=== PATIENT | female | born 1945 | race Caucasian/White ===

== ENCOUNTER → 2025-03-30 10:18 | Outpatient (REF) | payer MEDICARE, OTHER, SELFPAY | LOC: RAD 10:18 | PROVIDERS: ATTENDING PHYSICIAN Internal Medicine | DX: R06.02 Shortness of breath (principal) | CPT/HCPCS: 71046 ==

== ENCOUNTER → 2025-04-05 09:30 | Outpatient (REF) | payer MEDICARE, OTHER, SELFPAY | LOC: HWRCS 09:30 | PROVIDERS: ATTENDING PHYSICIAN Internal Medicine | DX: R06.02 Shortness of breath (principal) | CPT/HCPCS: 93306 ==

== ENCOUNTER → 2025-04-07 09:46 | Outpatient (REF) | payer MEDICARE, OTHER, SELFPAY | LOC: RCS 09:46 | PROVIDERS: ATTENDING PHYSICIAN Internal Medicine | DX: R06.02 Shortness of breath (principal) | CPT/HCPCS: 93017; 93350 ==

== ENCOUNTER → 2025-04-09 06:57 | Outpatient (REF) | payer MEDICARE, OTHER, SELFPAY | LOC: RAD 06:57 | PROVIDERS: ATTENDING PHYSICIAN Internal Medicine | DX: R93.89 Abnormal findings on diagnostic imaging of other specified body structures (principal) | CPT/HCPCS: 71260; Q9967 ==

== ENCOUNTER 2025-04-18 08:14 | Emergency (ER) | payer MEDICARE, OTHER, SELFPAY ==
[2025-04-18 08:16] VITALS: BP 161/96
[2025-04-18 09:30] LABS: Hematocrit 29.9 % (37.0-47.0); Hemoglobin 10.2 g/dL (12.0-16.0); Mean Corp Hgb Conc. 34.1 g/dL (33.0-37.0); Mean Corpuscular Volume 84.5 fL (81.0-99.0); Nucleated Red Blood Cells % 0 %; Platelet Count 367 10^3/uL (130-400); Red Cell Dist. Width 12.7 % (11.5-14.5)
[2025-04-18 09:36] VITALS: BP 133/92
[2025-04-18] MEDS: MORPHINE SULFATE 2 MG IV (09:41)
[2025-04-18] MEDS: TORADOL 15 MG IV (09:42)
[2025-04-18 09:44] LABS: Urine Character Clear (Clear)
[2025-04-18 09:46] LABS: ALT (SGPT) 24 U/L (0-35); AST (SGOT) 22 U/L (14-36); Albumin 4.0 g/dl (3.5-5.0); Alkaline Phosphatase 112 U/L (38-126); Blood Urea Nitrogen 29 mg/dl (7-17); Calcium 9.9 mg/dl (8.4-10.2); Carbon Dioxide 26 mmol/L (22-30); Chloride 103 mmol/L (98-107); Glucose 90 mg/dl (70-99); Potassium 3.5 mmol/L (3.5-5.1); Sodium 139 mmol/L (135-145); Total Protein 6.2 g/dl (6.3-8.2); eGFR > 60.00
--- NOTE | 2025-04-18 09:55 | ED.GENMED ---
History of Present Illness
General
Chief Complaint: Urinary Symptoms
Source: patient
Exam Limitations: none
Time Seen by Provider: 04/18/25 08:35
Nursing documentation reviewed up to this point in time: agreed with
History of Present Illness
History of Present Illness:
See MDM
Past History
Past History
ED Past Medical History: Negative Asthma
ED Past Surgical History: Negative Cardiac
Social History
Tobacco: Non-smoker
Alcohol: None
Drug: None
Personal:
Living: with family
Employment: Retired
Family History
Family History: Negative Early CAD
Phy Exam
Physical Exam
Physical Exam:
See MDM
Course
Orders/Labs/Results
Orders:
Orders
04/18/25 09:06
Straight cath- Treatment ONCE
Ketorolac [Toradol] 15 mg IV NOW STA
Morphine Sulfate 2 mg IV NOW STA
04/18/25 09:08
CT Pe/abd/pel W Urgent
Reason For Exam: pleuritic pain, r/o pe,
04/18/25 09:23
Complete Blood Count/With Diff Urgent
Comprehensive Metabolic Panel Urgent
04/18/25 09:37
Urinalysis Reflex To Culture Urgent
Date Specimen was Collected: 04/18/25
Time Specimen was Collected: 09:23
Urine Microscopic Reflex Cult Urgent
04/18/25 10:24
HYDROmorphone [Dilaudid] 0.5 mg IV NOW STA
04/18/25 11:55
Fosfomycin [Monurol] 3 gm PO ONCE ONE
Abnormal Lab Results
04/18/25 04/18/25
09:23 09:37
RBC 3.54 L 10^6/uL
(4.20-5.40)
Hgb 10.2 L g/dL
(12.0-16.0)
Hct 29.9 L %
(37.0-47.0)
Abs Immat Gran (auto) 0.1 H 10^3/uL
(0-0.05)
Absolute Monos (auto) 1.2 H 10^3/uL
(0.1-0.6)
Immature Gran % 1.2 H %
(0-0.5)
Monocytes % 12.1 H %
(1.7-9.3)
BUN 29 H mg/dl
(7-17)
Total Protein 6.2 L g/dl
(6.3-8.2)
Ur Occult Blood Reflex 3+ A
(Negative)
Urine RBC 3-6 A /HPF
(0-2)
Urine Bacteria (Reflex) Few A
(Negative)
Urine Albumin (Reflex) 2+ A
(Neg - Trace)
04/18/25 09:23
04/18/25 09:23
Vital Signs
Initial and Last Documented VS:
Initial Vital Signs
Temp Pulse Resp BP Pulse Ox
36.7 C 107 16 161/96 98
04/18/25 08:16 04/18/25 08:16 04/18/25 08:16 04/18/25 08:16 04/18/25 08:16
Last Documented Vital Signs
Temp Pulse Resp BP Pulse Ox
36.7 C 98 22 126/92 97
04/18/25 08:16 04/18/25 12:23 04/18/25 12:23 04/18/25 12:23 04/18/25 11:45
MDM/Problems Addressed
Differential Diagnosis Includes:
see MDM
MDM/Problems Addressed:
Note:
CHIEF COMPLAINT(S)
Increasing back pain and urinary issues.
HISTORY OF PRESENT ILLNESS
The patient is a 79-year-old female who presented with a chief complaint of worsening back pain over the past week and a half, accompanied by urinary concerns. She reports the onset of severe lower back pain described as 'knives' without any prior
injury such as falls or lifting. The pain has since progressed to the kidney area, wrapping around to the abdomen with pressure-like sensations. Movement exacerbates the pain significantly, making it difficult for the patient to move. She finds hot
showers provide temporary relief. The patient has not previously experienced this type of back pain.
Three to four days ago, the patient started noticing changes in her urine, including a yellow color with white sediment, although it was not cloudy. She denies symptoms typically associated with urinary tract infections that she has experienced in
the past. Despite this, she is taking Epadel twice weekly to prevent urinary tract infections.
The patient also mentioned a history of potential long COVID issues with associated breathing challenges that began after working in her garden. She has been undergoing various tests, including cardiac evaluation, due to these respiratory symptoms.
There has been reported weight loss of 12 pounds recently, from 138 pounds to 126 pounds.
PAST MEDICAL AND SURGICAL HISTORY
The patient is currently undergoing testing for long COVID. Previous cardiac tests were noted to detect an unidentified spot on her rib.
CHRONIC MEDICAL CONDITIONS SIGNIFICANTLY AFFECTING CARE
The patient is being treated for hypercholesterolemia and hypertension, although specific medication details were not provided.
PHYSICAL EXAM
- Nursing notes reviewed and vital signs reviewed.
-
GENERAL: Alert , in no apparent distress, comfortable at rest anxious
HEAD: NCAT
NECK: no midline tenderness, active ROM intact, no paraspinal muscle tenderness;
CARDIAC: Mild tachycardia 100 m, no edema
LUNGS: Clear breath sounds bilaterally, no acute respiratory distress, no wheezes/rales/rhonchi breathing quite well
ABDOMEN: Soft, without focal tenderness, no r/g, no cvat, normal bowel sounds, nondistended
NEUROLOGICAL: Alert and oriented, no focal neuro deficits, CN intact, 5/5 strength, sensation intact,
SKIN: Warm and dry, no rashes
MUSCULOSKELETAL: No edema, well perfused. Hips normal
Back: No midline tenderness, mild dextroscoliosis, slight left paraspinal muscle tenderness on exam, no swelling
negative straight leg raise Bilaterally no CVA tenderness
Patient has a lot of pain with any movement, leaning forward, changing position
Normal sensation
PSYCH: Normal and appropriate interaction.
PLAN
1. Initiate pain management, considering strong pain medication options such as Toradol (Ketorolac) and additional pain medication trials.
2. Perform a urine catheterization for a clean sample due to difficulty in ambulation.
3. Order relevant blood work and review prior imaging to assess for potential musculoskeletal or urinary obstructions.
4. Consider the necessity for further imaging, including the possibility of a bone scan, though the patient expressed concerns over tolerability.
5. Address the patients respiratory issues related to suspected long COVID from previous testing.
DIFFERENTIAL DIAGNOSIS
The Differential Diagnosis includes, in no particular order and is not limited to:
1. Musculoskeletal back pain
2. Long COVID syndrome
3. Urinary tract infection
4. Kidney stones
5. Osteoporosis-related fractures
6. Degenerative disc disease
7. Pathologic rib lesion
8. Non-specific urinary sediment
9. Nephrolithiasis
10. Chronic obstructive pulmonary disease (COPD) exacerbation
CARE-UPDATE
04/18/25 - 11:54
The patient reports that they have been administered dilaudid for pain, which was more effective than previous medications. A CT scan revealed numerous spots on the ribs, with the largest being 3 centimeters on the anterior left third rib. A
compression fracture at T6 and degenerative changes at L2 were noted, suggesting the pain may not be rib-related. Concern was raised about possible bone metastasis or multiple myeloma, given the rib lesions. Blood tests showed some microscopic
hematuria, but no clear infection signs; a dose of Monural was given as a precaution. Patient showed concern over weight loss and lack of appetite. Recommendations include contacting a hard hat diver/oncologist for further workup, possibly including a
bone marrow biopsy, after referrals by the primary care physician. Pain management will include opioid analgesics like oxycodone for at-home use, alongside stool softeners to prevent constipation. A pending bone scan scheduled for April should
not be canceled as it is part of the work-up. The shortness of breath may relate to underlying conditions detected on imaging. Emphasis was placed on the urgency of further evaluation to rule out or confirm malignancy. The patient was advised to
pursue referrals promptly and consider additional tests if necessary for back pain evaluation, possibly involving an MRI if symptoms persist or worsen. Acknowledgement of concerns related to potential cancer was addressed with reassurance and
encouragement for stepwise evaluation and management.
Patient was able to ambulate without assistance. Pain is controlled. Her primary is aware about this. DC home with oxycodone as needed
*Pulse Oximetry
SaO2: 99
Oxygen Mode of Delivery: Room air
Patient hypoxic: no
*Critical Care Note
Total Time (30-74mins, 75-104mins- exclusive of procedures): Not Applicable
ED Attending Note
-
Portions of this chart may have been created with voice recognition software.� Occasional wrong word or��sound alike� substitutions may have occurred due to the inherent limitations of voice recognition software.
Discharge Plan
Departure
Patient Disposition: Home (Routine Discharge)
Date of Disposition: 04/18/25
Time of Disposition: 12:09
Patient with high blood pressure during this ER visit?: No
Condition: Fair
Covid-19: Not Applicable
Discharge Problem:
lytic lesions rib, Compression fracture of lumbosacral spine, Back pain
Instructions: Low back pain (DC)
Prescriptions:
New
oxycodone 5 mg tablet
5 mg PO Q8H PRN (Reason: Pain) Qty: 14 0RF
No Action
benzonatate 100 MG capsule
100 mg PO TIDPRN PRN (Reason: cough) Qty: 14 0RF
codeine-guaifenesin [Guaiatussin AC] 200 MG/20 MG liquid
5 - 10 ml PO .Q4-6HPRN PRN (Reason: COUGH) Qty: 6 0RF
Referrals:
Dioni Pastrana, [Active, Hematology / Oncology] - Follow up in 5-7 days
Joanna Bernal MD [Family Provider, Internal Medicine]
Activity Restrictions/Additional Instructions:
I spoke with your doctor about your CAT scan report. She is going to give you a call tomorrow. In the meantime you can continue the prednisone taper
Take Tylenol twice a day 2 extra strength for pain. As needed for more severe pain you can do oxycodone 5 mg every 6-8 hours. Oxycodone is a narcotic and can make you constipated. Please take a stool softener while taking this.
Call the hematology oncology office for follow-up.
Return to the emergency department for inability to walk, severe pain, fevers or chills, urinary incontinence, or any concerns. We gave you dose of antibiotics just in case you have a very slight bladder infection
Interventions
Interventions:
*Risk Screen - Suicide Last Done: 04/18/25 08:16
*General Assessment Last Done: 04/18/25 08:54
*Neglect/Abuse Screening Last Done: 04/18/25 08:16
*ED- Fall Risk Assessment Last Done: 04/18/25 08:54
*ED COVID-19 Vaccine History Last Done: 04/18/25 08:54
*ED Influenza Vaccine History Last Done: 04/18/25 08:54
*Nursing Disposition Last Done: 04/18/25 12:31
ED-Female Genitourinary Assessment Last Done: 04/18/25 08:54
Discharge Date and Time
Discharge Date/Time: 04/18/25 12:32
Print Language: TAMAZIGHT
[2025-04-18] MEDS: DILAUDID 0.5 MG IV (10:32)
[2025-04-18 11:00] VITALS: BP 125/85
[2025-04-18] MEDS: MONUROL 3 GM PO (11:59)
[2025-04-18 12:23] VITALS: BP 126/92
== END 2025-04-18 12:32 | disposition home or self-care (01) ==
LOC: EMR 08:14
PROVIDERS: Physician Assistant; EMERGENCY PHYSICIAN Emergency Medicine; FAMILY PHYSICIAN Internal Medicine
DX: M48.54XA Collapsed vertebra, not elsewhere classified, thoracic region, initial encounter for fracture (principal); M48.57XA Collapsed vertebra, not elsewhere classified, lumbosacral region, initial encounter for fracture; E78.00 Pure hypercholesterolemia, unspecified; I10 Essential (primary) hypertension
CPT/HCPCS: 99284; 96374; 96375 ×2; 71275; 74177; 80053; 81003; 81015; 85025; Q9967

== ENCOUNTER 2025-04-25 12:39 | Inpatient (IN) | payer MEDICARE, OTHER, SELFPAY ==
[2025-04-25] VITALS (26 sets, daily range): BP systolic 83–120; BP diastolic 52–89; BMI 20.8; BMI 20.5
--- NOTE | 2025-04-25 08:52 | EDRN ---
Solitario GODDARD in room w/ pt.
--- NOTE | 2025-04-25 09:00 | ED.GENMED ---
History of Present Illness
General
Chief Complaint: Change in Mental Status
Time Seen by Provider: 04/25/25 08:45
History of Present Illness
History of Present Illness:
79-year-old female with recent diagnosis of multiple myeloma presents to the emergency department for evaluation of a period of disorientation that occurred this morning. According to her she seemed 'loopy and disoriented' when she woke up
but symptoms have since improved. They saw oncology 2 days ago for establishment of care with new diagnosis of multiple myeloma and due to pain related to multiple compression fractures in the thoracic and lumbar spine, the patient was prescribed
oxycodone. Family notes that the dosage has gradually increased from 5 mg to most recently 10 mg. Last dose of oxycodone was before sleep last night. Patient denies any complaints other than oral discomfort and dry mouth at this time, she is
currently being treated for oral thrush
Past History
Past History
ED Past Medical History: Negative Asthma
ED Past Surgical History: Negative Cardiac
Social History
Tobacco: Non-smoker
Alcohol: None
Drug: None
Personal:
Living: with family
Employment: Retired
Family History
Family History: Negative Early CAD
Review of Systems
Review of Systems
Allergies reviewed?: Yes
All Other Systems: ROS reviewed and negative except as documented in HPI and ROS
Phy Exam
Physical Exam
Physical Exam:
GEN: Well appearing, NAD, WDWN
HEENT: Oral mucosa dry, no scleral icterus
Cardiac: Regular rate and rhythm
Lung: No respiratory distress, no tachypnea
MSK: No gross deformity or injuries
Skin: Good color, no pallor or jaundice, no rashes
Neuro: AO x3, moves all extremities freely, CN II-XII grossly intact
Psych: Calm, cooperative
Course
Orders/Labs/Results
Orders:
Orders
04/25/25 09:00
Urinalysis Reflex To Culture Urgent
04/25/25 09:01
Electrocardiogram (*1) Urgent
Reason for Study: QTc Monitoring
EKG- Treatment ONCE
04/25/25 09:21
Case Management Consult ONCE
Case Management Consult: [facility]/Home Care
04/25/25 09:23
Complete Blood Count/No Diff Urgent
Comprehensive Metabolic Panel Urgent
04/25/25 09:42
0.9% Sodium Chloride 1000 ml [Nss] 1,000 ml IV BOLUS
04/25/25 10:22
Lactated Ringers [Lr] 1,000 ml IV BOLUS
04/25/25 12:31
Admit/Transfer Patient As Directed
Co-Sign Provider:
Level of Care: Inpatient admission
Assign to:: Telemetry
Physician / Group: narciso
Diagnosis: hypovolemia
Reason for Telemetry: Arrhythmia
Date to Stop Telemetry: 04/28/25
Time to Stop Telemetry: 11:00
Reason for Hospitalization: hypovolemia
Expected length of stay greater than two midnights?: Yes
ELOS- Estimated Length of Stay in days: 2
I certify the patient meets the requirements for IP care: Yes
PRN Pain Medication Management As Directed
May give lesser potent ordered pain med per pt: Yes
preference::
Protocol:: Medication orders for pain may be administered in a
manner that supports deferring to patient preference
when the pt is:
- Requesting an ordered lesser potent pain medication.
Least to most potent pain medications are defined
as: acetaminophen < NSAID < tramadol < opioids
(morphine, oxycodone, hydromorphone).
- Requesting a lesser dose of the same medication IF
ORDERED.
- Requesting a less intrusive route of administration
if both routes are prescribed by the provider (PO <
IV).
04/25/25 12:32
Code Status As Directed
Resuscitation Status: Full Code
04/28/25 11:00
DC Protocol for Telemetry ONCE
Abnormal Lab Results
04/25/25
09:23
WBC 12.4 H 10^3/uL
(4.8-10.8)
RBC 3.26 L 10^6/uL
(4.20-5.40)
Hgb 9.3 L g/dL
(12.0-16.0)
Hct 28.0 L %
(37.0-47.0)
Sodium 131 L mmol/L
(135-145)
BUN 51 H mg/dl
(7-17)
Creatinine 1.5 H mg/dL
(0.6-1.0)
Total Protein 5.5 L g/dl
(6.3-8.2)
Albumin 3.2 L g/dl
(3.5-5.0)
04/25/25 09:23
04/25/25 09:23
Vital Signs
Initial and Last Documented VS:
Initial Vital Signs
Temp Pulse Resp BP Pulse Ox
98.1 F 119 18 101/67 93
04/25/25 08:34 04/25/25 08:34 04/25/25 08:34 04/25/25 08:34 04/25/25 08:34
Last Documented Vital Signs
Temp Pulse Resp BP Pulse Ox
98.1 F 103 16 114/69 93
04/25/25 08:34 04/25/25 12:30 04/25/25 12:30 04/25/25 12:30 04/25/25 12:30
MDM/Problems Addressed
MDM/Problems Addressed:
I suspect the patient's transient confusion this morning is likely a product of her increasing oxycodone usage particularly given late night dosing, however cannot rule out associated metabolic encephalopathy in the setting of dehydration. While
her hemodynamics did improve, her soft blood pressures in conjunction with persistent tachycardia are concerning for severe dehydration which is likely worsened by her lack of p.o. intake due to active thrush. Will admit her for further IV fluids
and monitoring
*Pulse Oximetry
SaO2: 93
Oxygen Mode of Delivery: Room air
Patient hypoxic: no
*Critical Care Note
Total Time (30-74mins, 75-104mins- exclusive of procedures): Not Applicable
Update Note
Update Note:
Patient's daughter indicated to staff that she would like to seek case management consultation as she worries that her father is unable to care for the patient at this time
ED Attending Note
-
Portions of this chart may have been created with voice recognition software.� Occasional wrong word or��sound alike� substitutions may have occurred due to the inherent limitations of voice recognition software.
Discharge Plan
Departure
Patient Disposition: Admit
Date of Disposition: 04/25/25
Time of Disposition: 12:12
Admit to: Med/Surg
Presentation/result/management discussed w/ accepting MD/DO: Hospitalist
Discharge Problem:
Acute dehydration
Interventions
Interventions:
*Risk Screen - Suicide Last Done: 04/25/25 09:45
*General Assessment Last Done: 04/25/25 08:42
*Neglect/Abuse Screening Last Done: 04/25/25 09:45
*ED- Fall Risk Assessment Last Done: 04/25/25 09:45
*ED COVID-19 Vaccine History Last Done: 04/25/25 09:45
*ED Influenza Vaccine History Last Done: 04/25/25 09:45
ED- Pulmonary Assessment Last Done: 04/25/25 09:45
ED- Neurological Assessment Last Done: 04/25/25 09:45
ED- Cardiac Assessment Last Done: 04/25/25 09:45
ED Swallowing Screen Last Done: 04/25/25 09:40
[2025-04-25 09:33] LABS: Hematocrit 28.0 % (37.0-47.0); Hemoglobin 9.3 g/dL (12.0-16.0); Mean Corp Hgb Conc. 33.2 g/dL (33.0-37.0); Mean Corpuscular Volume 85.9 fL (81.0-99.0); Platelet Count 295 10^3/uL (130-400); Red Cell Dist. Width 13.2 % (11.5-14.5)
[2025-04-25] MEDS: NSS 1000 IV ×2 (09:47→14:28)
[2025-04-25 10:09] LABS: ALT (SGPT) 16 U/L (0-35); AST (SGOT) 14 U/L (14-36); Albumin 3.2 g/dl (3.5-5.0); Alkaline Phosphatase 102 U/L (38-126); Blood Urea Nitrogen 51 mg/dl (7-17); Calcium 9.5 mg/dl (8.4-10.2); Carbon Dioxide 29 mmol/L (22-30); Chloride 99 mmol/L (98-107); Estimated Creatinine Clearance 27 ml/min; Glucose 93 mg/dl (70-99); Potassium 4.6 mmol/L (3.5-5.1); Sodium 131 mmol/L (135-145); Total Protein 5.5 g/dl (6.3-8.2); eGFR 35.67
--- NOTE | 2025-04-25 11:35 | EDCM ---
Addendum entered by Marcela Cifuentes 04/25/25 11:54:
[facility] referral placed in [facility].
Original Note:
Consult received, chart reviewed, met with pt, her and 3 daughters bedside in ED. Pt lives with in 2 story home, has been sleeping in chair on first floor, full flight to second floor bedroom and full bath.
Needs assistance with ADLs and personal care, assists and daughters provide support but all work. Pt was ambulating with RW but has increasing weakness.
is primary caregiver, looking for assistance with getting her up in the morning and getting her to bed at night.
Discussed what services [facility] could provide, he is interested but does not feel that would provide enough help. is agreeable to [facility] referral.
I gave them a list of private pay caregiver agencies, instructed them they need to reach out to schedule services.
They also asked about SNF placement, reviewed need for 3 overnight stays for Medicare to cover otherwise would be private pay.
Pt saw Dr Orellana at [facility] last week, I also encouraged [facility] to [facility] to [facility] to see if could provide any additional resources.
Confirms prescription coverage.
PCP: Joanna Bernal
Pharmacy: [facility] on [address]
[2025-04-25] MEDS: LR 1000 IV (11:37)
--- NOTE | 2025-04-25 12:23 | EDRN ---
Dr. Valderrama in room w / pt and family at this time.
--- NOTE | 2025-04-25 12:35 | HPS.HSE ---
Family Physician
-
Family Physician: Joanna Bernal
Chief Complaint
-
confusion,
History of Present Illness
79-year-old female past medical history of hypertension, hypercholesteremia, thoracic spine lesions, rib lesion, suspected multiple myeloma, presenting for loopiness, disorientation and agitation this morning.
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 She was referred to see Dr. Brumfield of oncology who suspected she had multiple myeloma. She has yet to schedule bone marrow
biopsy.
She was recently treated with Medrol Dosepak for back pain related to osseous metastatic disease of the spine. She was prescribed oxycodone which was recently increased to 10 mg last week.
She recently had upper respiratory infection with coughing of phlegm, and was treated with Z-Mark.
After being treated with steroid and Z-Mark she developed oral thrush and was prescribed what sounds like clotrimazole lozenges which she started 2 days ago for 7-day course. She denies any swallowing difficulty although she coughs up sometimes.
She has not been eating or drinking much.
She denies any cough, nausea vomiting, abdominal pain, diarrhea or urinary symptoms.
She drinks 1 glass of alcohol per day. Denies smoking or drugs.
Medical History
Past Medical History
Past Medical History: Reports Other ( hypertension, hypercholesteremia, thoracic spine lesions, rib lesion, suspected multiple myeloma,)
Past Surgical History: Reports None
Social History
Tobacco: Non-smoker
Alcohol: Daily
Drug: None
Family History
Family History: Not pertinent
Allergies / Home Medications
Allergies reflects when Allergies were last updated in [facility].
Home Medications with original date entered in [facility]
Allergy/Medication List:
Allergies
Allergy/AdvReac Type Severity Reaction Status Date / Time
gabapentin Allergy sees Verified 04/25/25 09:42
angels at
night/hallucination
streptomycin Allergy diarrhea Unverified 04/25/25 09:42
Home Medications
benzonatate 100 mg capsule 100 mg PO TIDPRN PRN cough #14 caps 01/30/15
codeine 10 mg-guaifenesin 100 mg/5 mL oral liquid (Guaiatussin AC) 5 - 10 ml PO .Q4-6HPRN PRN COUGH #6 oz 01/30/15
oxycodone 5 mg tablet 5 mg PO Q8H PRN Pain #14 tabs 04/18/25
Review of Systems
-
History Source: Patient
A 12 point ROS was completed and negative except as noted: Yes
Physical Exam
Vital Signs
Vital Signs
Temp Pulse Resp BP Pulse Ox
98.1 F 90 16 99/69 98
04/25/25 08:34 04/25/25 12:00 04/25/25 12:00 04/25/25 12:00 04/25/25 12:00
Physical Exam
General: Well Developed, Well Nourished and No Apparent Distress
HEENT: NormoCephalic, Moist mucous membranes and Atraumatic
Respiratory: Clear
Cardiac: S1/S2 and Regular Rhythm; No Murmur or Rub
GI: Soft, Non Tender, Non Distended and Normal Bowel Sounds; No Organomegaly
Rectal: Deferred by Provider
Musculoskeletal: No Clubbing, No Cyanosis and No Edema
Skin: No Rash
Neuro: Nonfocal/grossly intact
Laboratory Results
-
04/25/25 09:23
04/25/25 09:23
Laboratory Results
Total Bilirubin 0.5 mg/dl (0.2-1.3) 04/25/25 09:23
AST 14 U/L (14-36) 04/25/25 09:23
ALT 16 U/L (0-35) 04/25/25 09:23
Alkaline Phosphatase 102 U/L (38-126) 04/25/25 09:23
Data Reviewed
-
Lab Data: Labs Reviewed by me
Old Records: Reviewed
Impression/Plan
-
IMPRESSION:
PLAN:
# Acute metabolic encephalopathy secondary to hypovolemia/tachycardia secondary to decreased p.o. intake from thrush
-Mental status back to normal
-No signs of infection or fever
-Urinalysis pending
- IV fluids
- Hold losartan
- Consider decreasing oxycodone back to 5 mg if there is concern for further encephalopathy from this
#Oral thrush secondary to recent steroid/antibiotic
- Appears to have improved
- Continue clotrimazole lozenges 5 times per day
Strongly suspect multiple myeloma
- Recently started seeing Dr. Brumfield with plan for bone marrow biopsy in near future
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
- Continue oxycodone
Chronic anemia likely from myeloma
- Hemoglobin 9.3
Essential hypertension
- Hold losartan
Hypercholesteremia
- Continue statin
Insomnia
- Continue trazodone
Full code
DVT prophylaxis�heparin
Regular diet
--- NOTE | 2025-04-25 14:36 | EDRN ---
Admission IVF hung at this time. Pt's POX 86-90% and pt placed on oxygen at 2lpm at this time. Pharmacy called about pt's esteras med as it is not available here and family will bring this med in tomorrow.
--- NOTE | 2025-04-25 14:38 | EDRN ---
TT sent to Dr. Valderrama at this time for an order for oxygen.
[2025-04-25 16:17] LABS: Urine Character Clear (Clear)
[2025-04-25 16:32] LABS: Urine Squamous Cell >30 /LPF (Few)
[2025-04-25 16:34] LABS: Urine Red Blood Cell 0-2 /HPF (0-2); Urine White Cell 0-2 /HPF (0-5)
--- NOTE | 2025-04-25 16:50 | EDRN ---
Family asking about roxicodone order for pt. THis RN informed them that this was ordered. This RN took out a roxicodone 10 mg for pt as ordered and brought it to pt. Pt declined it saying she had minimal if any back pain even w/ movement. Pt was
advised to call RN if starting to get pain so it doesn't get too bad before being medicated as it takes some time prior to medication starting to work after administration. Pt agreed.
--- NOTE | 2025-04-25 17:09 | EDRN ---
Orders processed at this time.
--- NOTE | 2025-04-25 17:27 | EDRN ---
Pt stated to this RN unable to dissolve the mycelex vasile as her mouth is efrain dry. This RN spoke w/ Vidya, pharmacist in pharmacy and was advised a swish and spit if thrush not in esophagus and swish and swallow if is in esophagus. Family states
thrush is in esophagus. This RN TT'd Dr. Valderrama about a swish and swallow nystatin for pt's thrush at this time. This RN is also attempting to order a diet tray for pt.
--- NOTE | 2025-04-25 17:30 | EDRN ---
Note sent to Dr. Valderrama at this time: Sorry Pt is on mycelex jake. Pt has minimal saliva and very dry mouth and it is not dissolving for her in her mouth. I just spoke to Vidya in the pharmacy, a pharmacist. She said pt could do a nystatin
swish and spit if thrush is not in the esophagus or a swish and swallow if it is in esophagus. Family says it is in esophagus and so I am asking you about swish and swallow nystatin instead of the JAKE.
--- NOTE | 2025-04-25 17:36 | EDRN ---
Diet tray ordered at this time.
--- NOTE | 2025-04-25 18:29 | EDRN ---
Report called to Marcela SHEPHERD in IVU at this time.
--- NOTE | 2025-04-25 18:31 | EDRN ---
Report called to Marcela SHEPHERD in IVU at this time.
--- NOTE | 2025-04-25 18:40 | EDRN ---
Pt just received diet tray at this time.
[2025-04-25] MEDS: MYCOSTATIN ORAL SUSPENSION 5 ML PO (21:02)
[2025-04-25] MEDS: ROXICODONE 10 MG PO (21:02)
[2025-04-25] MEDS: HEPARIN 5000 UNITS SC (21:04)
[2025-04-25] MEDS: LIPITOR 10 MG PO (21:14)
--- NOTE | 2025-04-25 22:00 | PTCARENOTE ---
Pt received from ED, AAOx3, NS on the monitor, able to stand for weight. Pt is a M/S Tele overflow and admitted with hypovolemia. Pt received on 2L O2, a little SOB with exertion but satting 99% using pt's toe. Pt was oriented to the hospital and
call roa system and all questions were answered.
[2025-04-26] VITALS (9 sets, daily range): BP systolic 122–141; BP diastolic 79–86; PULSE 103–123; O2SAT 97; BMI 20.5
[2025-04-26] MEDS: NSS 1000 IV (03:01)
[2025-04-26 03:30] LABS: Hematocrit 25.9 % (37.0-47.0); Hemoglobin 8.7 g/dL (12.0-16.0); Mean Corp Hgb Conc. 33.6 g/dL (33.0-37.0); Mean Corpuscular Volume 87.8 fL (81.0-99.0); Nucleated Red Blood Cells % 0 %; Platelet Count 286 10^3/uL (130-400); Red Cell Dist. Width 13.0 % (11.5-14.5)
[2025-04-26 03:52] LABS: ALT (SGPT) 15 U/L (0-35); AST (SGOT) 16 U/L (14-36); Albumin 2.8 g/dl (3.5-5.0); Alkaline Phosphatase 105 U/L (38-126); Blood Urea Nitrogen 37 mg/dl (7-17); Calcium 9.3 mg/dl (8.4-10.2); Carbon Dioxide 25 mmol/L (22-30); Chloride 106 mmol/L (98-107); Estimated Creatinine Clearance 42 ml/min; Glucose 78 mg/dl (70-99); Potassium 4.4 mmol/L (3.5-5.1); Sodium 134 mmol/L (135-145); Total Protein 5.1 g/dl (6.3-8.2); eGFR 58.02
[2025-04-26] MEDS: MYCOSTATIN ORAL SUSPENSION 5 ML PO ×4 (08:38→21:12)
[2025-04-26] MEDS: HEPARIN 5000 UNITS SC ×2 (08:38→19:35)
[2025-04-26] MEDS: PROTONIX 40 MG PO (08:38)
--- NOTE | 2025-04-26 08:45 | W.PN.HOSP.TC ---
Addendum entered and electronically signed by Zaki Weir MD 04/26/25 14:26:
Just received a message from case specialist that PT OT recommended SNF. Patient and family agreeable so less likely discharge today. Transfer out of IVU. Discharge planning in progress
Original Note:
Today's Communication/Plan
-
Discharge planning today
Assessment / Plan
Assessment / Plan
Physical exam:
General: Well Developed, Well Nourished and No Apparent Distress
HEENT: Normocephalic, Atraumatic and Moist Mucous Membranes
Respiratory: Clear to Auscultation; Negative Wheezes, Rales or Rhonchi
Cardiac: Regular Rhythm and S1/S2
GI: Soft, Nontender and Nondistended
Musculoskeletal: No Clubbing, No Cyanosis and No Edema
Neuro: Awake, Alert and Oriented, no neurological deficit
Psych: Calm
A/P:
# Acute metabolic encephalopathy secondary to hypovolemia/tachycardia secondary to decreased p.o. intake from thrush and polypharmacy with oxycodone and trazodone:
-Mental status back to normal.
-No signs of infection or fever
- Stop IV fluids
- Resume losartan upon discharge
- No need to decrease oxycodone but avoid interaction with trazodone and oxycodone
- PT OT eval for discharge disposition
- Discussed with family at bedside
#Asymptomatic bacteriuria
- Urine culture pending but no need to treat
#Oral thrush secondary to recent steroid/antibiotic
- Appears to have improved
- Continue nystatin suspension swish and swallow
Strongly suspect multiple myeloma
- Recently started seeing Dr. Brumfield with plan for bone marrow biopsy in near future
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
- Continue oxycodone
Chronic anemia likely from myeloma
- Hemoglobin 9.3--> 8.7 likely dilutional
Essential hypertension
- Hold losartan. Can resume upon discharge
Hypercholesteremia
- Continue statin
Insomnia
- Cautious with trazodone and narcotic
Full code
DVT prophylaxis�heparin
Regular diet
Anticipated Discharge: Today
Subjective/Interval History
-
Date of Service: April 26, 2025
She is alert and back to her baseline. No new complaints.
Objective Data
-
Labs:
Laboratory Results
04/26/25 04/26/25
03:17 03:18
WBC 9.6
Hgb 8.7 L
Hct 25.9 L
Plt Count 286
Sodium 134 L
Potassium 4.4
Chloride 106
Carbon Dioxide 25
BUN 37 H
Creatinine 1.0
Glucose 78
Calcium 9.3
Total Bilirubin 0.5
AST 16
ALT 15
Alkaline Phosphatase 105
Vital Signs:
Vital Signs
Temp Pulse Resp BP Pulse Ox
98.9 F 92 20 130/82 93
04/26/25 06:52 04/26/25 06:00 04/26/25 06:52 04/26/25 03:08 04/26/25 06:52
I&O
04/25/25 04/26/25 04/27/25
06:59 06:59 06:59
Intake Total 1919 / 1919
Output Total 400 / 400
Balance 1520 / 1520
--- NOTE | 2025-04-26 09:00 | PTCARENOTE ---
Received paitient at change of shift rounds. Patient was OOB on bedside commode with Assist x1. VSS stable, SR on telemetry. IVF infusing.
--- NOTE | 2025-04-26 09:48 | CM ---
Addendum entered by Aga Watson 04/26/25 14:34:
Reviewed chart. Also reviewed the therapy notes and recommendations of SNF. Met with Mr and Mrs. Loaiza and their daughter to review recommendations. They have selected to go to SNF/Rehab. Reviewed SNF options and they have selected [facility].
Telephone call to [facility] Admissions to make the referral. Sent the referral. Awaiting decision regarding ability to accept. Medical work-up in progress. The discharge plan is to go to SNF/Rehab.- hopefully [facility] when
medically stable.
Original Note:
Reviewed chart. Met with Mr and Mrs. Loaiza to review discharge plans. She states prior to admission she resides with her spouse in a two story home with one step to enter. She states she has a full flight of steps to get to bedroom/full bathroom.
She states she has a powder room on the first floor. She states prior to admission she was independent with adls and uses a walker for ambulation. She states she has a walker at home. She states she has a prescription plan and uses [facility]. Will need to see her current functional level to see if she will have any skilled care needs. Medical work-up in progress. The discharge plan is to return home with her spouse and [facility] if indicated when medically stable.
[2025-04-26] MEDS: ROXICODONE 10 MG PO ×2 (10:39→17:25)
--- NOTE | 2025-04-26 10:51 | PTCARENOTE ---
Patient medicated with Roxycodone 10 mg PO PRN for left lower back pain of 7 out of 10.
[2025-04-26] MEDS: VITAMIN B-12 1000 MCG PO (11:59)
[2025-04-26] MEDS: OSCAL 500 + D 500 MG PO (11:59)
--- NOTE | 2025-04-26 17:42 | PTCARENOTE ---
Patient medicated with 10 mg Roxycodone PO for 8 out of 10 lower back pain.
--- NOTE | 2025-04-26 17:45 | PTCARENOTE ---
Called into patient's room because she was vomiting. Patient vomited approximately 50 ml's of cloudy emesis. Patient reports that she pushed herself to eat too much of her dinner and was overly full. States she feel better.
--- NOTE | 2025-04-26 20:09 | PTCARENOTE ---
Assumed care of pt. called report to 2 N. pt transferred via w/c
[2025-04-26] MEDS: LIPITOR 10 MG PO (21:12)
[2025-04-27 06:12] LABS: Hematocrit 25.0 % (37.0-47.0); Hemoglobin 8.6 g/dL (12.0-16.0); Mean Corp Hgb Conc. 34.4 g/dL (33.0-37.0); Mean Corpuscular Volume 85.9 fL (81.0-99.0); Platelet Count 297 10^3/uL (130-400); Red Cell Dist. Width 12.8 % (11.5-14.5)
[2025-04-27 06:30] LABS: Blood Urea Nitrogen 28 mg/dl (7-17); Calcium 9.6 mg/dl (8.4-10.2); Carbon Dioxide 26 mmol/L (22-30); Chloride 106 mmol/L (98-107); Estimated Creatinine Clearance 46 ml/min; Glucose 85 mg/dl (70-99); Potassium 4.2 mmol/L (3.5-5.1); Sodium 135 mmol/L (135-145); eGFR > 60.00
[2025-04-27 07:18] VITALS: BP 140/90
--- NOTE | 2025-04-27 07:55 | PTCARENOTE ---
Patient transferred to from IVU via wheelchair at 2024. Patient able to ambulate to bed w/ standby assist. Gait steady w/ erect posture. Patient endorses recent persistent back pain-refuses analgesia at this time. Patient does continue to endorse
difficulty swallowing d/t oral thrush-See JUL. VSS. Bed in lowest position and locked, call roa within reach, patient has no new concerns at this time.
[2025-04-27] MEDS: PROTONIX 40 MG PO (08:00)
[2025-04-27] MEDS: ROXICODONE 10 MG PO ×3 (08:00→21:03)
--- NOTE | 2025-04-27 08:02 | CM ---
Addendum entered by Hollie Diaz 04/27/25 16:27:
Patient is appealing and reviewed forms with patient and her daughter. CM called to [facility] and they confirmed that patient is appropriate for SNF waiver. CM spoke with Jael and she indicated that she would work with CM in am to complete tandi
waiver forms. CM will continue to follow for discharge planning needs.
Addendum entered by Hollie Diaz 04/27/25 12:15:
Patient daughter spoke with CM and states that a [place] spoke with them yesterday and confirmed that patient would be transferred to [facility] and plan would be for discharge on sat. Patient daughter stated that patient signed IMM yesterday no, IMM on
chart. CM requested patient to sign form again. Daughter reviewed phone number for appeal and plans to call to start appeal at this time. CM will continue to follow for discharge planning needs and will update [facility] about change in plan.
Addendum entered by Hollie Diaz 04/27/25 08:10:
CM spoke with DON and patient accepted for transfer. CM will update patient and pending physician assessment. Please call report to [phone]/fax [phone]. CM will review transportation and IMM with patient and family. CM will continue to
follow for discharge planning needs.
Plan; transfer to SNF; [facility]
Original Note:
CM called to DON at [facility] [phone]
[2025-04-27] MEDS: MYCOSTATIN ORAL SUSPENSION PO (08:03)
[2025-04-27] MEDS: HEPARIN 5000 UNITS SC ×2 (08:03→20:58)
--- NOTE | 2025-04-27 08:15 | W.PN.HOSP.TC ---
Addendum entered and electronically signed by Anna Henao MD 04/27/25 14:05:
pt IS medically stable for d/c to [facility] today
Original Note:
Today's Communication/Plan
-
d/c to [facility]
Assessment / Plan
Assessment / Plan
pt is a 79 year old female
Acute metabolic encephalopathy secondary to hypovolemia/tachycardia secondary to decreased p.o. intake from thrush and polypharmacy with oxycodone and trazodone--resolved- Stop IV fluids- Resume losartan upon discharge--PT/OT rec SNF--for [facility]
Asymptomatic bacteriuria- Urine culture pending but no need to treat
Oral thrush secondary to recent steroid/antibiotic- Appears to have improved- Continue nystatin suspension swish and swallow
Strongly suspect multiple myeloma- Recently started seeing Dr. Brumfield with plan for bone marrow biopsy in near future
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
Chronic anemia likely from myeloma- Hemoglobin 9.3--> 8.7 likely dilutional
Essential hypertension- Hold losartan. Can resume upon discharge
Hypercholesteremia- Continue statin
Insomnia- Cautious with trazodone and narcotic
code status--Full code
DVT prophylaxis�heparin
Anticipated Discharge: Today
Subjective/Interval History
-
Date of Service: April 27, 2025
pt c/o nausea
Objective Data
-
Labs:
Laboratory Results
04/27/25
05:44
WBC 8.4
Hgb 8.6 L
Hct 25.0 L
Plt Count 297
Sodium 135
Potassium 4.2
Chloride 106
Carbon Dioxide 26
BUN 28 H
Creatinine 0.9
Glucose 85
Calcium 9.6
Vital Signs:
max temp for 24 hours
04/26/25
23:04
Temp 98.4 F
Vital Signs
Temp Pulse Resp BP Pulse Ox
98.2 F 103 18 140/90 97
04/27/25 07:18 04/27/25 07:18 04/27/25 07:18 04/27/25 07:18 04/27/25 07:18
I&O
04/26/25 04/27/25 04/28/25
06:59 06:59 06:59
Intake Total 1920 / 1920
Output Total 400 / 400
Balance 1520 / 1520
Review of Systems
-
All other systems: Reviewed and negative
Abdomen/GI: Reports Nausea
Physical Exam
-
General: Well Developed, Well Nourished and No Apparent Distress
HEENT: Normocephalic and Atraumatic
Respiratory: Clear to Auscultation; Negative Wheezes or Rhonchi
Cardiac: Regular Rhythm, S1/S2 and Tachycardic; Negative Murmur
GI: Soft, Nontender, Nondistended and Normal Bowel Sounds
Musculoskeletal: No Clubbing, No Cyanosis and No Edema
Skin: Warm
Neuro: Awake
Psych: Calm
[2025-04-27] MEDS: MYCOSTATIN ORAL SUSPENSION 5 ML PO ×3 (11:27→20:58)
[2025-04-27] MEDS: VITAMIN B-12 PO (11:27)
[2025-04-27] MEDS: OSCAL 500 + D PO (11:27)
[2025-04-27] MEDS: MIRALAX 17 GRAMS PO (11:27)
[2025-04-27 15:39] VITALS: BP 120/87
[2025-04-27 16:44] VITALS: BP 154/101; PULSE 103; O2SAT 95
[2025-04-27] MEDS: LIPITOR 10 MG PO (20:58)
[2025-04-27 23:22] VITALS: BP 138/85
[2025-04-28] MEDS: MIRALAX PO (07:44)
[2025-04-28] MEDS: MYCOSTATIN ORAL SUSPENSION 5 ML PO ×2 (07:45→12:24)
[2025-04-28] MEDS: HEPARIN 5000 UNITS SC (07:45)
[2025-04-28] MEDS: PROTONIX 40 MG PO (07:45)
[2025-04-28] MEDS: ROXICODONE 10 MG PO (07:53)
[2025-04-28 07:57] VITALS: BP 135/95
--- NOTE | 2025-04-28 08:42 | W.PN.HOSP.TC ---
Addendum entered and electronically signed by Zaki Weir MD 04/28/25 14:54:
Hyponatremia
ROBERTO
Original Note:
Today's Communication/Plan
-
Discharge planning
Assessment / Plan
Assessment / Plan
Physical exam:
General: Well Developed, Well Nourished and No Apparent Distress
HEENT: Normocephalic, Atraumatic and Moist Mucous Membranes
Respiratory: Clear to Auscultation; Negative Wheezes, Rales or Rhonchi
Cardiac: Regular Rhythm and S1/S2
GI: Soft, Nontender and Nondistended
Musculoskeletal: No Clubbing, No Cyanosis and No Edema
Neuro: Awake, Alert and Oriented
Psych: Calm
A/P:
pt is a 79 year old female
Acute metabolic encephalopathy secondary to hypovolemia/tachycardia secondary to decreased p.o. intake from thrush and polypharmacy with oxycodone and trazodone--resolved- Off IV fluids- Resume losartan--PT/OT rec SNF--for [facility]
Asymptomatic bacteriuria (strep species)- No need to treat
Oral thrush secondary to recent steroid/antibiotic- Appears to have improved- Continue nystatin suspension swish and swallow
Strongly suspect multiple myeloma- Recently started seeing Dr. Brumfield with plan for bone marrow biopsy in near future
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
Chronic anemia likely from myeloma- Hemoglobin 9.3--> 8.7-->8.6 likely dilutional on top of anemia of chronic disease
Essential hypertension-Resume losartan
Hypercholesteremia- Continue statin
Insomnia- Cautious with trazodone and narcotic
code status--Full code
DVT prophylaxis�heparin
Anticipated Discharge: Today
Subjective/Interval History
-
Date of Service: April 28, 2025
no new complaints, remains alert and oriented
Objective Data
-
Vital Signs:
Vital Signs
Temp Pulse Resp BP Pulse Ox
97.6 F 108 16 135/95 97
04/28/25 07:57 04/28/25 07:57 04/28/25 07:57 04/28/25 07:57 04/28/25 07:57
I&O
04/27/25 04/28/25 04/29/25
06:59 06:59 06:59
Intake Total 480 / 480
Balance 480 / 480
--- NOTE | 2025-04-28 08:43 | W.DCSUMMARY ---
Discharge Summary
Discharge Data
Date of Admission: 04/25/25
Date of Discharge: 04/28/25
Total time spent discharging patient (in min): 35
-
Pending Results: No
Hospital Course
Patient is 79 years old female with history of hypertension, hyperlipidemia, suspicion for multiple myeloma in the midst of her workup as outpatient, came into the hospital with mental status changes. Patient was found to have dehydration and also
encephalopathy from mixture of oxycodone and trazodone. Patient was given IV fluids and trazodone was held. Her renal function improved. She had mild hyponatremia that also improved. Patient improved and her mental status is back to her
baseline. She participated with PT OT and recommended [facility] facility. She also had some oral thrush and she has responded to Nystatin. Patient is going to be discharged in stable condition to rehab today.
Discharge duration: 35 minutes
Discharge Plan
-
Patient Disposition: Half-Way/SNF
Discharge Diagnosis/Procedures: Acute metabolic encephalopathy due to polypharmacy (combination of trazodone and oxycodone). Oral candidiasis. Dehydration. Anemia. Suspected multiple myeloma
Condition: Good
Diet: As tolerated and Regular
Activity: As tolerated
Driving Restrictions: As prior to admission
Bathing Restrictions: None
Blood Work: Please PCP to order CBC, BMP within 1 week
Referrals:
Joanna Bernal MD [Family Provider, Internal Medicine] - in less than 1 week
Prescriptions:
New
nystatin 100,000 unit/mL Suspension
5 ml PO QID 5 Days Qty: 100 0RF
polyethylene glycol 3350 17 gram Powder In Packet
17 g PO DAILY Qty: 0 0RF
oxycodone 10 mg Tablet
10 mg PO Q6HPRN PRN (Reason: moderate pain) Qty: 7 0RF
Continued
atorvastatin 10 mg tablet
10 mg PO QHS
losartan 100 mg tablet
100 mg PO QHS
oxycodone 10 mg tablet
10 mg PO Q6HPRN PRN (Reason: moderate pain)
cyanocobalamin (vitamin B-12) 1,000 mcg Tablet
1,000 mcg PO NOON
calcium carbonate-vitamin D3 600 mg-5 mcg (200 unit) Tablet
1 tab PO NOON
estradiol 0.01 % (0.1 mg/gram) cream
1 appful VAGINAL SUTH
omeprazole magnesium [Prilosec OTC] 20 mg Tablet,Delayed Release (Dr/Ec)
20 mg PO DAILY
Discontinued
clotrimazole 10 mg vasile
10 mg PO 5/D
Rx Instructions:
beginning 04/24/25 x7days
trazodone 100 mg tablet
100 mg PO HS
Discharge Orders:
Discharge Patient (As Directed); Ordered 04/28/25
Ordered By: Zaki Weir
Care Plan Goals
Care Plan Goals:
Problem: Readiness for enhanced knowledge related to diagnosis and treatment plan
Goal: Understand your diagnosis and treatment plan needs, including medications if applicable.
Instructions: Know your diagnosis, underlying causes and treatment plan options, including medications if applicable. Consult with your health care team to learn about your diagnosis and treatment plan, including medications if applicable.
Discharge Date and Time
Discharge Date/Time: 04/28/25 13:33
Print Language: INDONESIAN
--- NOTE | 2025-04-28 09:10 | CM ---
Addendum entered by Hollie Diaz 04/28/25 13:13:
Reviewed with daughter Jennifer information regarding insurance and patient choice to go to [facility]. Patient daughter indicated that she understood and that she and family would address any further questions with facility. Patient daughter indicated that
she understood that her mother did not want to go to any other facility other than [facility] and patient spouse confirmed that plan. Patient daughter stated that she called to cancel the appeal and was told it was in the final stages of review and could
not do so. The customer assistance representative did call CM with same information but stated that patient could be discharged if family agreed. CM also spoke with customer assistance representative from [facility] and they are stating that patient does not qualify for Waiver at
this time. CM also spoke with ROSA Arguelles and she and Michela from Admissions confirmed that they wanted to accept patient. Patient daughter expressed appreciation for the communication and update. CM will continue to follow for discharge planning needs.
Plan; transfer to [facility] today. Please call report to [phone].
Addendum entered by Hollie Diaz 04/28/25 10:49:
CM called to patient daughter to review Waiver option and concern about insurance coverage. VM left for patient daughter to review all options.
Addendum entered by Hollie Diaz 04/28/25 10:39:
CM spoke with admissions at [facility] and they are willing to accept patient. CM spoke with Daughter, as well as patient and patient . Patient eager to go to SNF; [facility]. Please call report to [phone]. Patient daughter aware of
need to cancel the appeal for patient to leave the hospital. Patient also considering going with patient in car vs ambulance. CM will continue to follow for discharge planning needs.
Plan; SNF today.
Original Note:
CM spoke with [facility] DON and they are assessing if they can accept patient with 2 midnights as inp and 1 midnight with appeal pending. DON/Admissions to call CM back shortly to clarify. CM spoke with [facility]; they are reviewing for waiver but patient
would not be able to go to [facility] as they are not on the contract list for the waiver, patient would be able to consider alternative SNF; family had mentioned [facility] and CM will discuss with family if [facility] not able to accept patient. Patient
appealed discharge and pending [place] appeal decision. CM will continue to follow for discharge planning.
Plan; SNF; [facility] pending facility assessment or Waiver via [employer]; would need to consider [employer] facilities.
[2025-04-28] MEDS: OSCAL 500 + D PO (12:24)
[2025-04-28] MEDS: VITAMIN B-12 PO (12:24)
[2025-04-28 12:30] VITALS: BP 128/86
--- NOTE | 2025-04-28 14:21 | PN.CDI ---
CDI
- -
CDI:
Physician Documentation Request
Admit Date: 04/25/25 12:39
Dear Doctor Carmella,
Patient admitted with acute metabolic encephalopathy.
Creatinine levels documented below:
Laboratory Tests
04/25/25 04/26/25 04/27/25
09:23 03:17 05:44
Creatinine 1.5 H 1.0 0.9
Please clarify which of the following accurately represents the patient's renal status:
ROBERTO
Insignificant abnormal lab finding only
Other
Criteria for ROBERTO*
1 Increase in serum creatinine by > or = to 0.3 mg/dL (> or = to 26.5 micromol/L) within 48 hours, OR
2 Increase in serum creatinine to > or = to 1.5 times baseline, which is known or presumed to have occurred within 7 days, OR
3 Urine volume < 0.5 nL/kg/hour for six hours
Use of terms such as suspected, likely, concern for, or probable (associated with a specific diagnosis that is being evaluated, monitored, or treated as if it exists) are acceptable and can be coded in the inpatient setting, when documented at the
time of discharge.
Thank you,
Joanna DELONG,RN,CCDS
CDI Specialist
Available via [place] text
Please use your independent medical judgment in providing your response.
*Source: Kidney Disease: Improving Global Outcomes (KDIGO) 2012
--- NOTE | 2025-04-28 14:33 | PN.CDI ---
CDI
- -
CDI:
Physician Documentation Request
Admit Date: 04/25/25 12:39
Dear Doctor Carmella,
Patient admitted with acute metabolic encephalopathy.
Patient received IV NSS.
Na levels documented below:
Laboratory Tests
04/25/25 04/26/25 04/27/25
09:23 03:17 05:44
Sodium 131 L 134 L 135
Based on the above, could you clarify in the progress notes, the appropriate diagnosis, if significant, that supports the above abnormalities and additional evaluation, monitoring and/or treatment rendered:
Hyponatremia
Insignificant lab findings
Other
Use of terms such as suspected, likely, concern for, or probable (associated with a specific diagnosis that is being evaluated, monitored, or treated as if it exists) are acceptable and can be coded in the inpatient setting, when documented at the
time of discharge.
Thank you,
Joanna DELONG,RN,CCDS
CDI Specialist
Available via [place] text
Please use your independent medical judgment in providing your response.
== END 2025-04-28 13:33 | DRG 682 ==
LOC: 2 NORTH 12:39
PROVIDERS: Physician Assistant; ADMITTING PHYSICIAN Hospitalist; ATTENDING PHYSICIAN Hospitalist; EMERGENCY PHYSICIAN Student in an Organized Health Care Education/Training Program; FAMILY PHYSICIAN Internal Medicine
DX: N17.9 Acute kidney failure, unspecified (principal); G93.41 Metabolic encephalopathy; B37.0 Candidal stomatitis; C90.00 Multiple myeloma not having achieved remission; E87.1 Hypo-osmolality and hyponatremia; E86.1 Hypovolemia; R00.0 Tachycardia, unspecified; D64.9 Anemia, unspecified; I10 Essential (primary) hypertension; E78.00 Pure hypercholesterolemia, unspecified; G47.00 Insomnia, unspecified; T38.0X5A Adverse effect of glucocorticoids and synthetic analogues, initial encounter
CPT/HCPCS: 71046; 80048; 80053; 81003; 81015; 85025; 85027; 87077; 87086; 93005; 96360; 96361; 97116; 97163; 97167; 97530; 99285

== ENCOUNTER → 2025-05-03 09:47 | Outpatient (REF) | payer MEDICARE, OTHER, SELFPAY ==
[2025-05-03 11:33] LABS: Hematocrit 27.9 % (37.0-47.0); Hemoglobin 8.9 g/dL (12.0-16.0); Mean Corp Hgb Conc. 31.9 g/dL (33.0-37.0); Mean Corpuscular Volume 91.5 fL (81.0-99.0); Nucleated Red Blood Cells % 0 %; Platelet Count 282 10^3/uL (130-400); Red Cell Dist. Width 13.2 % (11.5-14.5)
[2025-05-03 11:41] LABS: Blood Urea Nitrogen 28 mg/dl (7-17); Calcium 10.0 mg/dl (8.4-10.2); Carbon Dioxide 31 mmol/L (22-30); Chloride 100 mmol/L (98-107); Glucose 106 mg/dl (70-99); Potassium 3.7 mmol/L (3.5-5.1); Sodium 136 mmol/L (135-145); eGFR > 60.00
== END ==
LOC: OLABP 09:47
PROVIDERS: ATTENDING PHYSICIAN Family Medicine
DX: G93.41 Metabolic encephalopathy (principal); E86.0 Dehydration; B37.0 Candidal stomatitis; D64.9 Anemia, unspecified; E78.5 Hyperlipidemia, unspecified; I10 Essential (primary) hypertension; C79.51 Secondary malignant neoplasm of bone; C80.1 Malignant (primary) neoplasm, unspecified
CPT/HCPCS: 36415; 80048; 85025

== ENCOUNTER → 2025-05-05 09:51 | Outpatient (REF) | payer OTHER, MEDICARE, SELFPAY ==
[2025-05-05 10:41] LABS: Hematocrit 27.4 % (37.0-47.0); Hemoglobin 8.7 g/dL (12.0-16.0); Mean Corp Hgb Conc. 31.8 g/dL (33.0-37.0); Mean Corpuscular Volume 89.0 fL (81.0-99.0); Nucleated Red Blood Cells % 0 %; Platelet Count 285 10^3/uL (130-400); Red Cell Dist. Width 13.2 % (11.5-14.5)
== END ==
LOC: OLABP 09:51
PROVIDERS: ATTENDING PHYSICIAN Family Medicine
DX: I10 Essential (primary) hypertension (principal); G47.00 Insomnia, unspecified; C79.51 Secondary malignant neoplasm of bone; C80.1 Malignant (primary) neoplasm, unspecified; G93.41 Metabolic encephalopathy; E86.0 Dehydration; B37.0 Candidal stomatitis; D64.9 Anemia, unspecified; E78.5 Hyperlipidemia, unspecified
CPT/HCPCS: 36415; 85025

== ENCOUNTER → 2025-05-07 07:00 | Outpatient (REF) | payer MEDICARE, OTHER, SELFPAY ==
[2025-05-07] VITALS (8 sets, daily range): BP systolic 96–124; BP diastolic 70–89
[2025-05-07 07:34] LABS: Hematocrit 31.0 % (37.0-47.0); Hemoglobin 10.0 g/dL (12.0-16.0); Mean Corp Hgb Conc. 32.3 g/dL (33.0-37.0); Mean Corpuscular Volume 90.1 fL (81.0-99.0); Nucleated Red Blood Cells % 0 %; Platelet Count 346 10^3/uL (130-400); Red Cell Dist. Width 13.0 % (11.5-14.5)
[2025-05-07 07:40] LABS: INR 1.08; PT 13.8 Sec (11.4-14.6)
[2025-05-07] MEDS: ATIVAN 0.5 MG PO (07:47)
== END ==
LOC: RADI 07:00
PROVIDERS: ATTENDING PHYSICIAN Internal Medicine Hematology & Oncology; FAMILY PHYSICIAN Internal Medicine; OTHER PHYSICIAN Physician Assistant
DX: C90.00 Multiple myeloma not having achieved remission (principal); D64.9 Anemia, unspecified
CPT/HCPCS: 36415; 38222; 77012; 85025; 85610; 88305; 88311; 88312; 88313